=== PATIENT | female | born 1955 | race Caucasian/White ===

== ENCOUNTER → 2024-09-04 | Outpatient (CLI) | payer MEDICARE, OTHER ==
[2024-09-04 17:30] LABS: BASO # 0.1 10^3/uL (0.0-0.2); BASO % 0.7 % (0.0-1.0); EOS # 0.2 10^3/uL (0.0-0.5); EOS % 2.6 % (0.0-3.0); LYMPH # 2.1 10^3/uL (1.5-5.0); LYMPH % 24.8 % (24.0-44.0); MONO # 0.8 10^3/uL (0.0-0.8); MONO % 9.8 % (2.0-8.0); NEUTROPHILS # 5.2 10^3/uL (1.5-8.5); NEUTROPHILS % 61.9 % (36.0-66.0); PLATELET COUNT, AUTOMATED 256 10^3/uL (150-450)
[2024-09-04 17:56] LABS: ALT/SGPT 37.0 U/L (7.0-40); AST/SGOT 41.0 U/L (<34); CALCIUM LEVEL 10.1 MG/DL (8.3-10.6); CARBON DIOXIDE LEVEL 23.0 MMOL/L (20-31); CHLORIDE LEVEL 98.0 MMOL/L (98-107); CREATININE FOR GFR 0.84 MG/DL (0.55-1.30); GLOMERULAR FILTRATION RATE 75.2 (>45); POTASSIUM SERUM 3.7 MMOL/L (3.5-5.1); SODIUM LEVEL 135.0 MMOL/L (136-145)
== END ==
LOC: M LAB 16:27
PROVIDERS: ATTEND Registered Nurse
DX: A69.20 Lyme disease, unspecified (principal)